=== PATIENT | male | born 1950 | race Caucasian/White ===

== ENCOUNTER → 2020-12-03 16:04 | Outpatient (BNVA) | payer MEDICARE, SELFPAY | PROVIDERS: Visit Provider Urology | DX: R35.1 Nocturia (principal); N32.81 Overactive bladder; N40.1 Benign prostatic hyperplasia with lower urinary tract symptoms; N13.8 Other obstructive and reflux uropathy | CPT/HCPCS: Q3014 ==

== ENCOUNTER → 2020-12-31 14:25 | Outpatient (BNVA) | payer MEDICARE, SELFPAY | PROVIDERS: Visit Provider Urology | DX: N40.1 Benign prostatic hyperplasia with lower urinary tract symptoms (principal); N13.8 Other obstructive and reflux uropathy; N32.81 Overactive bladder; R35.1 Nocturia | CPT/HCPCS: 51798; 99212 ==

== ENCOUNTER → 2021-01-18 10:55 | Outpatient (BNVA) | payer MEDICARE, SELFPAY | PROVIDERS: Visit Provider Urology | DX: N40.1 Benign prostatic hyperplasia with lower urinary tract symptoms (principal); N13.8 Other obstructive and reflux uropathy; N32.81 Overactive bladder | CPT/HCPCS: 52000; 52332; 81002; 99212 ==

== ENCOUNTER → 2022-06-21 10:57 | Outpatient (BNVA) | payer MEDICARE, SELFPAY | PROVIDERS: Visit Provider Urology | DX: N40.1 Benign prostatic hyperplasia with lower urinary tract symptoms (principal); N13.8 Other obstructive and reflux uropathy; R35.1 Nocturia; N32.81 Overactive bladder | CPT/HCPCS: 51798; 99212 ==

== ENCOUNTER → 2022-10-02 09:03 | Outpatient (BNVA) | payer MEDICARE, SELFPAY | PROVIDERS: Visit Provider Nurse Practitioner Family | DX: N45.1 Epididymitis (principal) | CPT/HCPCS: 99212 ==

== ENCOUNTER 2023-12-20 10:15 | Outpatient (AMB) | payer MEDICARE, SELFPAY ==
--- NOTE | 2023-12-20 11:27 | A.OFFVIS_ITS ---
Intake Intake Visit Reasons: Scrotal Swelling Intake Note: Patient Is Present for Scrotal Swelling and Pain. 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 He states that 1 week ago he was lifting a case water and later in the day noted swelling in his right testicle. He denies burning with urination. Examination: Left testicle is normal mild tenderness right testicle positive swelling, firm, positive tenderness Review of chart: 10/02/22 Antoine is a 72 year old male patient of Dr. Burgos who present to the office today for a follow up s/p ER visit to [facility] for left sided testicular pain and swelling. Patient presented to [facility] ER on September 23 with reports of left testicular pain and swelling that had been increasing over the last 5 days. At that time patient was reporting his right testicle was starting to become painful as well. Work up through this ER visit concluded epididymitis. Ultrasound reviewed with patient. Patient states he is unsure as to what had happened or why this happened however has been on Cipro 500mg daily as well as Tylenol 1000mg BID. When asked he states that the pain is much better however still reports mild discomfort at times as well as mild to moderate swelling. Patient denies dysuria, frequnecy, and or urgency. On evaluation today patient's left testicle with mild swelling when compared to the right. Upon examination patient reports pain to be a 4 on a scale of 0-10. When asked patient states that he does feel as if the swelling is worse at the end of the day. Discussed with patient aggravating symptoms and the need for icing and resting the area as tolerated. Urinalysis in office today negative which is reassuring. 12/20/2023-plan Bactrim DS 1 tab twice a day for 7 days Flomax 0.4 mg daily Discussed uses ibuprofen p.r.n. for pain the patient states he has that at home Scrotal ultrasound [facility] Medical History BPH (benign prostatic hyperplasia) Erectile dysfunction Cystitis Surgical History History of back surgery Social History Household Members: Spouse Review of Systems Const All systems reviewed & are unremarkable except as noted in HPI and below Reports no additional complaints Eyes Reports no additional complaints ENT Reports no additional complaints Card Denies dyspnea Resp Denies cough and Denies dyspnea GI Reports no additional complaints Musc Reports no additional complaints Skin/Breast Denies rash and Denies unusual bruising Neuro Reports no additional complaints Psych Reports no additional complaints Endo Reports no additional complaints Arash/Lymph Reports no additional complaints Aller/Immun Reports no additional complaints Physical Exam Const General: healthy appearing, no acute distress and well developed Orientation/consciousness: patient oriented x3 HEENT Head: Yes normocephalic and Yes atraumatic Eyes Conjunctivae: conjunctivae normal Neck Neck: Yes normal visual inspection Chest Chest palpation & inspection: normal inspection of the chest Resp Effort & Inspection: normal respiratory effort Cardio Rate: regular rate GI Inspection: Yes normal to inspection Palpation (GI): Soft to palpation Other: Left testicle is normal mild tenderness right testicle positive swelling, firm, positive tenderness Penis: normal penis Skin General skin exam: no rashes or lesions noted Neuro General: patient oriented x3 Extrem General: No pedal edema Psych Appearance: grossly normal Affect: normal affect Results AMB Urinalysis, Automated UA Leukoctes 15 Danna/uL Last Edit by WELLINGTON Peacock on 12/20/23 12:07 UA Nitrite Negative Last Edit by WELLINGTON Peacock on 12/20/23 12:07 UA Urobilinogen 0.2 mg/dL Last Edit by WELLINGTON Peacock on 12/20/23 12:0 7 UA Protein 15 mg/dL Last Edit by WELLINGTON Peacock on 12/20/23 12:07 UA pH 5.0 Last Edit by WELLINGTON Peacock on 12/20/23 12:07 UA Blood 0 Mateo/uL Last Edit by WELLINGTON Peacock on 12/20/23 12:07 UA Specific Vian 1.025 Last Edit by WELLINGTON Peacock on 12/20/23 12: 07 UA Ketone Negative Last Edit by WELLINGTON Peacock on 12/20/23 12:07 UA Bilirubin 0 mg/dL Last Edit by WELLINGTON Peacock on 12/20/23 12:07 UA Glucose 1000 mg/dL Last Edit by WELLINGTON Peacock on 12/20/23 12:07 3+ Elvis Garcia 12/20/23 12:07 Results Reviewed Results Reviewed: Laboratory Last Values Urine pH (Auto) 5.0 12/20/23 12:06 Specific Vian (Auto) 1.025 12/20/23 12:06 Urine Protein (Auto) 15 mg/dL 12/20/23 12:06 Glucose (UA)(Auto) 1000 mg/dL 12/20/23 12:06 Urine Ketones (Auto) Negative 12/20/23 12:06 Urine Blood (Auto) 0 Mateo/uL 12/20/23 12:06 Urine Nitrite (Auto) Negative 12/20/23 12:06 Urine Bilirubin (Auto) 0 mg/dL 12/20/23 12:06 Urine Urobilinogen (Auto) 0.2 mg/dL 12/20/23 12:06 Leukocyte Esterase (Auto) 15 Danna/uL 12/20/23 12:06 Assessment & Plan Assessment & Plan (1) Right testicular pain: Code(s): N50.811 - Right testicular pain (2) Scrotal swelling: Code(s): N50.89 - Other specified disorders of the male genital organs (3) BPH w urinary obs/LUTS: Code(s): N40.1 - Benign prostatic hyperplasia with lower urinary tract symptoms; N13.8 - Other obstructive and reflux uropathy (4) Screening PSA (prostate specific antigen): Code(s): Z12.5 - Encounter for screening for malignant neoplasm of prostate Plan Bactrim DS 1 tab twice a day for 7 days Flomax 0.4 mg daily Discussed uses ibuprofen p.r.n. for pain the patient states he has that at home Scrotal ultrasound Orders: Orders US scrotum 12/20/23 N50.811 - Right testicular pain, N50.89 - Other specified disorders of the male genital organs PSA,Total (Free>4and<10) 3 Months N13.8 - Other obstructive and reflux uropathy, N40.1 - Benign prostatic hyperplasia with lower urinary tract symptoms, Z12.5 - Encounter for screening for malignant neoplasm of prostate AMB Urinalysis Automated 12/20/23 Z13.9 - Encounter for screening, unspecified Medications: New sulfamethoxazole-trimethoprim 800-160 mg (Bactrim DS) 1 tab PO BID 14 tabs 0RF tamsulosin (Flomax) 0.4 mg PO BEDTIME 30 caps 3RF for prostate/urinary flow Coding Level of Care Code Est Pt Level 4 (03868) Diagnoses Right testicular pain N50.811 Scrotal swelling N50.89 BPH w urinary obs/LUTS N40.1; N13.8 Screening PSA (prostate specific antigen) Z12.5
== END 2023-12-20 12:03 | disposition home or self-care (01) ==
PROVIDERS: PCP Nurse Practitioner Family; Visit Provider Urology
DX: N50.811 Right testicular pain (principal); N50.89 Other specified disorders of the male genital organs; N40.1 Benign prostatic hyperplasia with lower urinary tract symptoms; N13.8 Other obstructive and reflux uropathy; Z12.5 Encounter for screening for malignant neoplasm of prostate
CPT/HCPCS: 99214

== ENCOUNTER → 2023-12-20 10:15 | Outpatient (BNVA) | payer MEDICARE, SELFPAY | PROVIDERS: PCP Nurse Practitioner Family; Visit Provider Urology | DX: Z12.5 Encounter for screening for malignant neoplasm of prostate (principal); N40.1 Benign prostatic hyperplasia with lower urinary tract symptoms; N13.8 Other obstructive and reflux uropathy; N50.89 Other specified disorders of the male genital organs; N50.811 Right testicular pain | CPT/HCPCS: 81003; 99212 ==